=== PATIENT | female | born 1995 | race Caucasian/White ===

== ENCOUNTER 2021-07-11 12:01 | Inpatient (IN) | payer BC ==
[~2021-07-11] VITALS: Ht 154.9 cm; Wt 61.7 kg
[2021-07-12] MEDS ORDERED: LR 1,000 ML IV ONE (12:15)
[2021-07-12] MEDS ORDERED: TERBUTALINE SULFATE 1 MG/ML VIAL SUBCUT ONE (12:15)
[2021-07-12] MEDS ORDERED: NALBUPHINE HCL 10 MG/ML AMP IVP PRN (12:15)
[2021-07-12] MEDS ORDERED: OXYTOCIN/0.9 % SODIUM CHLORIDE 1,000 ML IV SCH ×2 (12:15→18:00)
[2021-07-12] MEDS ORDERED: LR 1,000 ML IV SCH (12:15)
[2021-07-12] MEDS ORDERED: AMPICILLIN SODIUM 2 GM VIAL ONE (12:29)
[2021-07-12] MEDS ORDERED: AMPICILLIN SODIUM 2 GM in NS 100 ML IV ONE (13:15)
[2021-07-12 13:39] LABS: BASOPHILS % (AUTO) 0.4 % (0.0-2.0); EOSINOPHILS # (AUTO) 0.1 K/uL (0.0-0.4); EOSINOPHILS % (AUTO) 1.2 % (0.0-4.0); HEMATOCRIT 36.2 % (36-48); HEMOGLOBIN 12.4 g/dL (12.0-16.0); LYMPHOCYTES # (AUTO) 1.2 K/uL (1.0-5.5); LYMPHOCYTES % (AUTO) 12.3 % (20.5-51.5); MEAN CORPUSCULAR HEMOGLOBIN 29 pg (27-31); MEAN CORPUSCULAR HGB CONC 34 % (32-36); MEAN CORPUSCULAR VOLUME 86 fL (79.0-98.0); MONOCYTES # (AUTO) 0.6 K/uL (0.0-1.0); NEUTROPHILS # (AUTO) 8.1 K/uL (1.8-7.7); NEUTROPHILS % (AUTO) 80.1 % (40.0-70.0); PLATELET COUNT (AUTO) 131 K/uL (130-430); RED BLOOD CELL COUNT(AUTO) 4.22 MIL/uL (4.2-6.2); RED CELL DISTRIBUTION WIDTH 14.5 % (9.0-15.0); WHITE BLOOD COUNT (AUTO) 10.1 K/uL (4.8-10.8)
[2021-07-12] MEDS ORDERED: fentaNYL CITRATE/PF 100 MCG/2 ML AMP ONE (15:17)
[2021-07-12] MEDS ORDERED: ROPIVACAINE HCL/PF 0.2% 200 ML ONE (15:17)
[2021-07-12] MEDS ORDERED: NALOXONE HCL 0.4 MG/ML AMP (NARCAN) ONE (15:23)
[2021-07-12] MEDS ORDERED: LIDOCAINE PF 1% 30ML(POUR BTL) INJ ONE (15:23)
[2021-07-12] MEDS ORDERED: LIGHT MINERAL OIL 10 ML VIAL MC ONE (15:23)
[2021-07-12] MEDS ORDERED: NALOXONE HCL 0.4 MG/ML AMP (NARCAN) IVP PRN (16:00)
[2021-07-12] MEDS ORDERED: DIPHENHYDRAMINE INJ 50 MG/ML VIAL IVP PRN (16:00)
[2021-07-12] MEDS ORDERED: FENT2mCg/mL-ROPIVA0.2%/NS EPID 200 ML EP SCH (16:00)
[2021-07-12] MEDS ORDERED: ONDANSETRON HCL 4 MG/2 ML VIAL IVP PRN (16:00)
[2021-07-12 16:10] VITALS: BP_SYST 103
[2021-07-12] MEDS ORDERED: DERMOPLAST SPRAY TP PRN (18:00)
[2021-07-12] MEDS ORDERED: AMPICILLIN SODIUM 1 GM in NS 50 ML IV SCH (18:00)
[2021-07-12] MEDS ORDERED: OXYTOCIN/0.9 % SODIUM CHLORIDE 1,000 ML IV ONE (18:00)
[2021-07-12] MEDS ORDERED: LANOLIN 7 GM OINT. TP PRN (18:00)
[2021-07-12] MEDS ORDERED: ANUSOL 1 EA SUPP.RECT (PREPARATION H) RC PRN (18:00)
[2021-07-12] MEDS ORDERED: HYDROCORTISONE 0.5% CREAM 28.4 GM CREAM.GM. TP PRN (18:00)
[2021-07-12] MEDS ORDERED: MEASLES,MUMPS&RUBELLA VACC/PF 12500 UNIT/0.5 ML VIAL SUBQ PRN (18:00)
[2021-07-12] MEDS ORDERED: RHO(D) IMMUNE GLOBULIN/MALTOSE 1500 UNITS/1.3 ML (WINHRO) IM PRN (18:00)
[2021-07-12] MEDS ORDERED: WITCH HAZEL LEAF 1 MED.PAD MED.PAD TP PRN (18:00)
[2021-07-12] MEDS ORDERED: DIPH-TET-PERTUS Vaccine 0.5 ML VIAL (ADACEL) I.M. PRN (18:00)
[2021-07-12] MEDS ORDERED: TEMAZEPAM 15 MG CAPSULE PO PRN (18:00)
[2021-07-12] MEDS: IBUPROFEN 600 MG TABLET PO SCH (18:39)
[2021-07-13] MEDS: IBUPROFEN 600 MG TABLET PO SCH ×5 (00:43→23:39)
[2021-07-13] MEDS: SENNOSIDES/DOCUSATE SODIUM 1 TAB TABLET(SENOKOT-S) PO SCH ×2 (00:43→23:46)
[2021-07-13] MEDS ORDERED: NALOXONE HCL 0.4 MG/ML AMP (NARCAN) IVP PRN (02:00)
[2021-07-13] MEDS ORDERED: OXYCODONE/ACETAMINOPHEN 5-325 TABLET PO PRN (02:00)
[2021-07-13] MEDS ORDERED: HYDROcodone/ACETAMIN 5-325 MG TAB (NORCO/ VICODIN) PO PRN (02:00)
[2021-07-13] MEDS: OXYCODONE/ACETAMINOPHEN 5-325 TABLET PO PRN (02:09)
[2021-07-13 06:39] LABS: HEMATOCRIT 29.9 % (36-48); HEMOGLOBIN 10.3 g/dL (12.0-16.0)
[2021-07-13] MEDS: DOCUSATE SODIUM 100 MG CAPSULE PO SCH (12:19)
[2021-07-14] MEDS: IBUPROFEN 600 MG TABLET PO SCH ×2 (06:13→11:55)
[2021-07-14] MEDS: OXYCODONE/ACETAMINOPHEN 5-325 TABLET PO PRN ×2 (07:45→13:52)
[2021-07-14] MEDS: DOCUSATE SODIUM 100 MG CAPSULE PO SCH (08:29)
[2021-07-16 12:07] LABS: FTA-Ab (T PALLIDUM) Non Reactive (Non Reactive)
== END 2021-07-14 15:55 | disposition home or self-care (01) | DRG 560 ==
LOC: SPU 12:01 → INTOOBSV 12:01 → UNDOADMOB 12:01 → EDSTATUS 12:15 → SPU 07-12 10:31
PROVIDERS: ADMIT Obstetrics & Gynecology; ATTEND Obstetrics & Gynecology
PROC: 10E0XZZ Delivery of Products of Conception, External Approach (ICD-10-PCS; principal; 2021-07-12)
PROC: 3E0R3BZ Introduction of Anesthetic Agent into Spinal Canal, Percutaneous Approach (ICD-10-PCS; 2021-07-12)
PROC: 00HU33Z Insertion of Infusion Device into Spinal Canal, Percutaneous Approach (ICD-10-PCS; 2021-07-12)
DX: O69.81X0 Labor and delivery complicated by cord around neck, without compression, not applicable or unspecified (principal); Z37.0 Single live birth; D62 Acute posthemorrhagic anemia; O99.824 Streptococcus B carrier state complicating childbirth; Z3A.39 39 weeks gestation of pregnancy; Z20.822 Contact with and (suspected) exposure to COVID-19
CPT/HCPCS: 36415; 85018; 85025; 86592; 86780; 86886; 86900; 86901; 94760; J0290; J2001; J2300; J2310; J3010